=== PATIENT | male | born 1975 | race Caucasian/White ===

== ENCOUNTER 2023-11-28 03:44 | Emergency (ER) | payer OTHER ==
[~2023-11-28] VITALS: Ht 180.3 cm; Wt 117.9 kg
[2023-11-28 03:46] VITALS: BP 139/72; PULSE 93; RESP 18; O2SAT 99
[2023-11-28 04:14] VITALS: BP 139/72; PULSE 93; RESP 18; O2SAT 99
== END 2023-11-28 04:14 ==
LOC: MED 03:44
DX: M54.50 Low back pain, unspecified (principal); I10 Essential (primary) hypertension; Z88.2 Allergy status to sulfonamides; V43.92XA Unspecified car occupant injured in collision with other type car in traffic accident, initial encounter; Y93.89 Activity, other specified; Y92.89 Other specified places as the place of occurrence of the external cause; Y99.8 Other external cause status
CPT/HCPCS: 99283